=== PATIENT | female | born 1980 | race Caucasian/White ===

== ENCOUNTER 2024-08-25 13:10 | Outpatient (CLI) | payer OTHER, SELFPAY | END 2024-08-25 13:11 | disposition home or self-care (01) | PROVIDERS: Visit Provider Advanced Practice Midwife | DX: O09.522 Supervision of elderly multigravida, second trimester (principal); Z67.40 Type O blood, Rh positive; Z3A.21 21 weeks gestation of pregnancy | CPT/HCPCS: 83020; 83021; 85660; 86592; 86703; 86704; 86706; 86762; 86787; 86803; 86850; 86900; 86901; 87086; 87340 ==

== ENCOUNTER 2024-09-09 10:04 | Outpatient (CLI) | payer OTHER, SELFPAY | END 2024-09-09 10:05 | disposition home or self-care (01) | LOC: US 10:04 | PROVIDERS: Visit Provider Advanced Practice Midwife | DX: O09.522 Supervision of elderly multigravida, second trimester (principal); Z3A.23 23 weeks gestation of pregnancy | CPT/HCPCS: 76811 ==

== ENCOUNTER 2024-10-12 08:37 | Outpatient (CLI) | payer OTHER, SELFPAY | END 2024-10-12 08:38 | disposition home or self-care (01) | LOC: NFLDREF 10-14 15:27 | PROVIDERS: Visit Provider Advanced Practice Midwife | DX: Z34.93 Encounter for supervision of normal pregnancy, unspecified, third trimester (principal); Z3A.28 28 weeks gestation of pregnancy | CPT/HCPCS: 86592 ==

== ENCOUNTER 2024-12-08 11:23 | Outpatient (CLI) | payer OTHER, SELFPAY ==
[2024-12-09 11:45] LABS: Strep B DNA Probe Negative (Negative)
[2024-12-09 11:47] LABS: Strep B Susceptibility Needed? No
== END 2024-12-08 11:24 | disposition home or self-care (01) ==
LOC: NFLDREF 11:23
PROVIDERS: Visit Provider Midwife
DX: Z34.93 Encounter for supervision of normal pregnancy, unspecified, third trimester (principal); Z3A.36 36 weeks gestation of pregnancy
CPT/HCPCS: 82728; 87081; 87653

== ENCOUNTER 2025-01-09 00:48 | Inpatient (IN) | payer OTHER, SELFPAY ==
[2025-01-09] VITALS (16 sets, daily range): BP systolic 90–108; BP diastolic 52–70; PULSE 65–93; RESP 16; TEMP 36.6–37.1; O2SAT 97–100; BMI 28.5
[2025-01-09 01:04] LABS: Hematocrit* 33.7 % (33.0-51.0); Hemoglobin* 11.2 gm/dL (12.0-16.0); Immature Granulocytes Pct Auto 0.5 %; Mean Corpuscular HGB Conc 33 gm/dL (32-36); Mean Corpuscular Hemoglobin 28 pg (26-34); Mean Corpuscular Volume 83 fL (80-100); RDW Coefficient of Variation % 15.1 % (11.5-15.5); Red Blood Count* 4.07 m/uL (4.00-5.20); White Blood Count* 14.97 K/uL (4.50-11.00)
[2025-01-09] MEDS: OXYTOCIN 30 unit/500 ML in NS 30 UNIT/500 ML BAG 300 UNIT IVPB (01:08)
[2025-01-09 01:13] LABS: Immature Granulocytes Abs Auto 0.10 K/uL (0.00-0.30); Lymphocytes Absolute Auto 1.90 K/uL (0.90-2.90); Slide Review Reflex No
[2025-01-09] MEDS: miSOPROStoL 800 MCG/4 TABLET PR (01:33)
[2025-01-09] MEDS: IBUPROFEN 600 MG TABLET PO ×2 (01:45→10:46)
--- NOTE | 2025-01-09 01:49 | P.LDBA_ITS ---
Subjective History of Present Illness Date Seen: 01/09/25 Narrative: Alejandrina is being admitted to Labor and Delivery for labor. She is a 44 year old at 40.6 weeks gestation. Her full history and physical was dictated by Edgard Sosa on 12/15/24. Please see this for details. Specific Issues/Plans Partner: Abe- ?; Youngest son Randy likes to help! H&P:?completed 12/15 by CATHY Ashraf ? #? Advanced maternal age >40 Recommend Genetic Screening Test -declines? 20-week Level II detailed ultrasound with MFM- normal Weekly BPP starting at 36 weeks-may decline all testing and growths Growth and anatomy (per MFM) ultrasound at 32 weeks?(declines) Recommend delivery at 39-39 6/7 weeks.?(will likely decline) #? Anxiety no hx of meds or therapy # Late to [facility] first visit at 21.2 weeks # Grand Multiparity # Hx PPH Plan SL in labor # Rubella non-immune Recommend vaccine #Anemia in Taking food based supplement 28w: 9.9 36w: 10.6 ? Imaging:??? Level II Anatomy US (09/09/2024): Impression: 1. Young intrauterine at 23w 3d gestational age. 2. None of the anomalies commonly detected by ultrasound were evident in the detailed anatomic survey described above. 3. Growth parameters and estimated weight were consistent with appropriate for gestational age pattern of growth. 4. The amniotic fluid volume appeared normal. Recommendation: The patient has declined all aneuploidy screening and diagnostic testing during . Given AMA > 40, recommend repeat assessment of growth and anatomy at 32 weeks and weekly BPP at 36 weeks, which I anticipate will be scheduled at [facility]. Consider IOL in the 39th week as well. Vaccinations:?? COVID: declines? Flu: declines? Tdap: declines RSV: declines Hep B non-immune: declines 32 week mental health: 11/09/2024? Last pap:?06/20/24 NILM, neg HPV? OB - Problem Based A/P Additional Plan (1) Active labor at term: Status: Acute (2) 40 weeks gestation of : Status: Acute (3) Anemia affecting : Status: Acute (4) Grand multiparity with current : Status: Acute (5) Advanced maternal age (AMA), 40 years or greater: Status: Acute Plan Assessment:?? at 40.6 weeks gestation?? GBS negative? Patient is coping well with challenges of labor.?? Labor type: Spontaneous, Active labor? FHR 120-130, poorly traced no audible decelerations? complicated by: ? Advanced maternal age >40 ? Anxiety Late to [facility] first visit at 21.2 weeks Grand Multiparity Hx PPH Rubella non-immune Anemia in Plan:?? * ?Admit to L & D? * IV access: saline lock * Monitoring per policy: NST then intermittent ? * Candidate for analgesia of choice.? Planning unmedicated for pain management * Expectant management at this time ? * Patient encouraged to reposition and ambulate to promote physiologic labor and . * Anticipate ? Delivery/Labor/Induction Plan Plan: expectant management OB Exam Physical Exam Vital signs: Pulse BP Pulse Ox 80 90/63 99 01/09/25 01:44 01/09/25 01:44 01/09/25 00:58 Narrative: Vitals Reviewed Constitutional:? Alert and oriented x3 HEENT:? Normocephalic, atraumatic Neck:? Supple Lungs:? Clear to auscultation bilaterally Heart:? Regular rate and rhythm, no murmur, rub or gallop Abdomen:? Soft, nontender, and gravid. Extremities:? No edema or erythema Cervix: deferred NST: attempted, delivery imminent Detailed Labor and Delivery Exam Patient Gravid: yes
--- NOTE | 2025-01-09 01:57 | W.PM.OBVAGDE ---
OB Procedure Vag Delivery Mother Details Mother Details: The patient is a 44 year-old, 10, Para 6, admitted on 01/09/25 at 40.6 weeks gestation. : 10 Para: 7 Weeks Gestation: 40.6 Admission Date: 01/09/25 Additional Details Amniotic Membrane Status: SROM Amniotic Membrane Rupture Date: 01/09/25 Amniotic Membrane Rupture Time: 01:01 Amniotic Membrane Fluid Description: Clear Analgesia/Anesthesia Type: None Waterbirth: No Pitcoin: Yes (for AMTSL) Intrapartal Events: Precipitous Labor <3 Hrs Labor Onset: 00:00 Complete: 01:01 Pushin:01 Heart: heart tones during second stage were not traced as she delivered within one minute from start of pushing. Delivery Details Delivery Date: 01/09/25 Delivery Time: 01:02 Route of delivery: Infant Gender: Female Viability: Alive; Heart Rate Present Position at Delivery: OA Delivery Details: 44?y.o?at 40.6 weeks.? Alejandrina has been having contractions for the last few days. Contractions became strong and regular around midnight so they called to say they were coming in. On arrival she stated she felt pelvic pressure. An IV was placed for her hx of PPH. Shortly after arrival she had SROM of clear fluid and then over the next contraction she delivered her baby. ? ? She became complete at 0101, assumed with pushing.??She pushed while standing leaning over the bed, effectively.? Spontaneous vaginal delivery at 0102 of?a viable? female .??Delivered in vertex OA position restituted to VICTOR M.??Shoulders delivered easily.? Spontaneous cry noted.??Baby was delivered and then passed through her legs to mothers arms. ?Cord?was clamped and cut after a 5+ minute delay.??Nose and mouth were bulb suctioned.? Shoulder dystocia: no? Nuchal cord: no? Meconium stained?fluid: no? Water : no? ? ? 8 at 1 minute and 8 at 5 minutes.? Weight is pending. ? Placenta delivered spontaneously and?complete?at 0132 with a?3 vessel?cord.?? Bleeding controlled with fundal massage and?pitocin?for AMTSL, given Cytotec rectally when placenta not delivered at 25 minutes post delivery. ? Lacerations:? 1st degree, not bleeding not repaired.? ? Bleeding?post delivery?was: minimal. ?The fundus was firm to palpation.? Blood loss: 25?mL.? Blood loss measurement type: QBL? ? ? Sponge,?lap?and needles counts are correct.? Mother and were stable after delivery.? 1 Minute Interval Total Score: 8 5 Minute Interval Total Score: 8 Additional Details Shoulder Dystocia: No Placenta Delivery Time: 01:32 Placental Delivery Description: Spontaneous Procedure Done: Global Blood Loss: 25 Laceration: Perineal - 1st Degree Blood Loss Measurement Type: QBL Bakri Used: No Sponge/Need Count Correct: Yes Cord Vessel Description: 3 Vessels Event Summary Status: Mother and infant were stable after delivery. Disposition: floor
[2025-01-10 01:27] VITALS: BP 96/61; PULSE 80; RESP 16; TEMP 37.1; O2SAT 98
[2025-01-10 08:05] VITALS: BP 98/64; PULSE 57; RESP 16; TEMP 36.6; O2SAT 98
--- NOTE | 2025-01-10 08:55 | P.DS_ITS ---
DS: Providers Provider Date Seen: 01/10/25 Date of admission: 01/09/25 00:48 Primary care physician: Not a Local Provider Admitting Clinician: Mady Jackson CNM Attending Physician on discharge: Mady Jackson CNM Date of Discharge: 01/10/25 DS: Diagnosis Discharge Diagnosis (1) care following vaginal delivery: Status: Acute (2) Lactating mother: Status: Acute (3) Anxiety: Status: Acute Exam Narrative: Exam Narrative: GENERAL APPEARANCE:? normal affect, alert, no distress? MOOD:? appropriate? CHEST:? clear to auscultation and percussion? HEART:? regular rate and rhythm? BREASTS: soft, nontender, no erythema, nipples intact? ABDOMEN:? soft, non-tender the uterine fundus is U/2 and is appropriate for the stage of recovery.? PERINEUM:? mild edema of the perineum, there is a 1st degree laceration that is healing well.? EXTREMITIES:? normal and no edema? Const: Vital Signs, click to edit/add: Vital Signs - 24 hr 01/09/25 09:00 01/09/25 11:00 01/09/25 16:13 Temperature 98.8 F Pulse Rate [Pulse Oximeter] 78 70 70 Respiratory Rate 16 16 16 Blood Pressure [Le ft Arm] 99/65 100/68 100/70 Pulse Oximetry 99 99 97 Oxygen Delivery Me thod Room Air Room Air Room Air 01/09/25 20:06 01/10/25 01:27 01/10/25 08:05 Temperature 98 F 98.8 F 97.9 F Pulse Rate [Pulse Oximeter] 78 80 57 L Respiratory Rate 16 16 16 Blood Pressure [Le ft Arm] 108/68 96/61 98/64 Pulse Oximetry 98 98 98 Oxygen Delivery Me thod Room Air Room Air Room Air Documenting provider has reviewed patient's vital signs: yes OB - DS: Summary Hospital Course Hospital Course: Alba is a 44 y.o. G 10 P 7 who was admitted to L & D for spontaneous labor. ?She had a NVD that was uncomplicated but precipitous. The patient feels well. ?The pain is well controlled with current medications. ?She has no new complaints. ?She is breast feeding and reports things are going well. She is using a shield which she has with most of her children. the patient has done well.? Vitals have been stable.? She has remained afebrile.? Has a good appetite, is tolerating a general diet. ?She is voiding without difficulty.? She is passing gas and has not had a bowel movement.? She is ambulating and denies any dizziness.? Has small amount of rubra lochia. She is planning NFP for prevention. She has successfully used this in the past. Declines prescriptions for ibuprofen and Colace and will take OTC PRN. Problems: none Peripartum Data Infant delivery method: Vaginal Laceration description: Perineal - 1st Degree Episiotomy description: None complications: none [place] Gender: Female Infant Discharge Plan: Home Status at Discharge Functional status at discharge: independent ambulation Overall status at discharge: patient is progressing back to baseline Time Spent with Patient Time attestation: Total time spent providing and/or coordinating discharge services: Discharge Plan Discharge Disposition: Home, Self-Care Date of Admission: 01/09/25 00:48 Attending Provider on Discharge: Leslee Bowers Primary Care Provider: Provider,Not a Local Condition: Stable Anticipated Discharge Date/Time: 01/10/25 13:00 Discharge Medications: Continued One A Day Women's DHA 28 mg iron- 800 mcg combo pack 1 pkg PO DAILY magnesium 200 mg tablet 200 mg PO QDAY ferrous sulfate 220 mg (44 mg iron)/5 mL elixir 110 mg PO QDAY Discharge Orders: Discharge Order (Routine); Ordered 01/10/25 Ordered By: Leslee Bowers Patient Education: OB Vaginal/Breast Feeding Additional Instructions: Discharge instructions were reviewed with the patient including signs and symptoms of infection and home going medications Nothing vaginally for 6 weeks: no tampons or intercourse Do not drive while taking narcotic pain medication(s) Off Work or School for 8 weeks Symptoms to report to doctor: * Bleeding that saturates more than one pad per hour * Passing clots larger than the size of a golf ball * Pain not relieved by prescribed medication * Fever above 100.4 degrees Fahrenheit * A foul vaginal odor * Difficulty in emotions, mood, and functions * Thoughts of hurting yourself and/or * Painful, reddened area in your breast * Any drainage, redness, or tenderness in your IV/epidural site * Severe headache that doesn't improve after taking medications * Changes in vision, including temporary loss of vision, blurred vision, and/or light sensitivity * Upper abdominal pain (usually under ribs on the right side) * Decrease in urination or painful, frequent urinating * Chest pain * Shortness of breath * Tenderness or pain with redness and/swelling in the calf(s) of your leg 2-week visit: discuss infant feeding concerns, review control options and screen for anxiety/depression. 6-week visit for an annual exam. consultation services are available to all mothers and babies for the first year after delivery.? To make an appointment, please call [phone]. Activity Level: Activity as Tolerated Discharge Diet: Regular Follow Up Appointments: [facility] [Provider Group] Provider,Not a Local [Primary Care Provider, Family Practice] Forms: Patient Belongings, MyHealth Info Instructions
== END 2025-01-10 12:50 | disposition home or self-care (01) | DRG 807 ==
LOC: OB OUT 01:06 → OB 01:06
PROVIDERS: Admitting Provider Advanced Practice Midwife; Visit Provider Advanced Practice Midwife
DX: O99.02 Anemia complicating childbirth (principal); Z37.0 Single live birth; D64.9 Anemia, unspecified; O62.3 Precipitate labor; O70.0 First degree perineal laceration during delivery; O99.344 Other mental disorders complicating childbirth; F41.9 Anxiety disorder, unspecified; Z3A.40 40 weeks gestation of pregnancy
CPT/HCPCS: 36415; 85025; 86592; 86850; 86900; 86901; A9270